=== PATIENT | female | born 1990 | race Caucasian/White ===

== ENCOUNTER 2018-08-13 17:56 | Emergency (ER) | END 2018-08-13 19:26 | disposition left against medical advice (07) ==

== ENCOUNTER 2018-10-23 08:45 | Inpatient (IN) | payer OTHER ==
[~2018-10-23] VITALS: Ht 172.7 cm; Wt 111.2 kg
[~2018-10-23 08:45] MED LIST: PREN-93 PO
--- NOTE | 2018-10-23 08:46 | NSTRPT ---
NST Information Datetime Report Generated by CPN: 10/23/2018 08:46 Datetime: 10/19/2018 10:30 NST Information EGA: 39.4 Test Number: 8 Time on Monitor: 10/19/2018 11:05 Time off Monitor: 10/19/2018 11:36 NST Duration (Min): 31 Reason for NST: Diabetes Mellitus; Other Reason for NST Other: A1DM Test and Monitor Explained: Monitor Explained; Test Explained; Verbalized Understanding Pulse: 96 Resp: 18 SBP: 111 DBP: 65 Test Evaluation NST Interventions: None Patient States Movement: Present Contraction Frequency: NONE FHR Baseline : 150 Variability: Moderate 6-25bpm Accelerations: 15X15 Decelerations: None FHR Category: Category I NST Results: Reactive Comments: PT TO U/S ROBIN 12.7 CM CEPHALIC Electronically Signed By E-Signature: with User ID: [id number] Datetime: 10/17/2018 10:44 NST Information EGA: 39.2 NST Duration (Min): 97 Datetime: 10/12/2018 09:26 NST Information EGA: 38.4 NST Duration (Min): 26 Datetime: 10/09/2018 14:14 NST Information EGA: 38.1 NST Duration (Min): 26 Datetime: 10/05/2018 14:13 NST Information EGA: 37.4 NST Duration (Min): 30 Datetime: 10/02/2018 10:22 NST Information EGA: 37.1 NST Duration (Min): 20 Datetime: 09/28/2018 13:10 NST Information EGA: 36.4 NST Duration (Min): 25 Datetime: 09/25/2018 13:19 NST Information EGA: 36.1 NST Duration (Min): 49
[2018-10-23 09:27] VITALS: BP 128/73; PULSE 83; RESP 17; Ht 172.7 cm; Wt 111.2 kg
[2018-10-23] MEDS ORDERED: OXYCODONE/ASPIRIN (4.88/325) TAB PO PRN (09:30)
[2018-10-23] MEDS ORDERED: BUTORPHANOL 2 MG INJ IV PRN (09:30)
[2018-10-23] MEDS ORDERED: OXYTOCIN 30 UNITS/LR 500 ML IV SCH ×2 (09:30)
[2018-10-23] MEDS ORDERED: CARBOPROST 250 MCG INJ IM PRN (09:30)
[2018-10-23] MEDS ORDERED: LIDOCAINE 1% (MPF) 30 ML INJ INJ PRN (09:30)
[2018-10-23] MEDS ORDERED: MISOPROSTOL 200 MCG TAB PR PRN (09:30)
[2018-10-23] MEDS ORDERED: IBUPROFEN 600 MG TAB PO PRN (09:30)
[2018-10-23] MEDS ORDERED: METHYLERGONOVINE 0.2 MG INJ IM PRN (09:30)
[2018-10-23] MEDS ORDERED: OXYTOCIN 30 UNITS/LR 500 ML IV PRN (09:30)
--- NOTE | 2018-10-23 10:19 | TRIAGE ---
OB Triage Datetime Report Generated by CPN: 10/23/2018 10:18 Datetime: 10/23/2018 10:10 Vaginal Exam Dilatation (cms): 0.0 Exam By: [facility]U Datetime: 10/23/2018 09:38 Labor Evaluation Frequency: 2-6 Monitor Mode: External Duration (sec)2399: 50-70 Quality: Mild Pattern: Normal: <= 5 Contractions in 10 Minutes Resting Tone Elsa: Relaxed Heart Rate FHR Baseline Rate: 135 Monitor Mode: External US Variability: Moderate 6-25 bpm Accelerations: 15X15 Decelerations: None Category: Category I Pain Presence: None/Denies Pain Type: N/A Datetime: 10/23/2018 09:25 Assessment Type: Triage Maternal Assessment Level of Consciousness: Fully Conscious DTR's/Clonus: DTRs 2+; No Clonus Headache: Denies Blurred Vision: No Respiratory Effort: Unlabored; Regular Rhythm; Equal Expansion Breath Sounds, Left: Clear and Equal Breath Sounds, Right: Clear and Equal Nausea/Vomiting: Denies RUQ Epigastric Pain: Denies Lower Extremities Edema: None Degree: None Upper Extremities Edema: None Facial Edema: None Fall Risk Assessment History of Falling: (0) No Secondary Diagnosis: (0) No Ambulatory Aid: (0) Bedrest/Nurse Assist IV Therapy: (0) No Gait: (0) Normal/Bedrest/Immobile Mental Status: (0) Oriented to Own Ability Fall Score: 0 Fall Risk Score Definition: No Risk: No action required Datetime: 10/23/2018 09:24 Time of Arrival: 10/23/2018 08:43 EGA: 40.1 Arrived By: Ambulatory Arrived From: Home Chief Complaint: pt came to ob triage with referral form for nst, bpp, efw Movement: Present Contractions: Irregular Rupture of Membranes: Denies Vaginal Bleeding: None Vaginal Discharge: Denies Recent Sexual Intercouse: Denies Abdominal Trauma: Not Applicable Patient Complaints: None Additional Patient Complaints: history of type II DM Time Provider Notified: 10/23/2018 10:01 Provider Notified: Datetime: 09/15/2018 23:56 Pain Assessment Pain Scale: 0 Pain Presence: None/Denies Pain Type: N/A Datetime: 09/15/2018 21:53 Stage of : OB Triage Datetime: 09/15/2018 21:06 EGA: 34.5 Datetime: 09/15/2018 20:52 Fall Score: 25 Fall Risk Score Definition: Low Risk: Please see standard fall prevention interventions Datetime: 08/13/2018 20:00 EGA: 30.0 Datetime: 08/13/2018 19:40 Fall Score: 0 Fall Risk Score Definition: No Risk: No action required
[2018-10-23] MEDS: LACTATED RINGER'S 1,000 ML IV SCH ×3 (11:06→23:27)
[2018-10-23] MEDS: MISOPROSTOL 50 MCG CAPSULE PO SCH ×3 (12:36→22:11)
--- NOTE | 2018-10-23 17:07 | HP ---
Date/Time of Note Date/Time of Note DATE: 10/23/18 TIME: 17:01 OB - History Hx of Present Free Text/Dictation 2 para 1 at 40+ weeks gestation admitted for induction of labor Last Menstrual Period: January 17, 2018 Estimated Due Date: Oct 22, 2018 : 2 Para: 1 Care: Good Care Ultrasounds: Normal mid trimester US Obstetrical Complications: None, Other (Bipolar affect disorder) Medical Complications: None Past Family/Social History * Past Medical, Surgical, Family and Obstetric Histories reviewed from chart. Blood Type: A+ Rubella: immune RPR/VDRL: Negative GBS Status: Negative HBsAG: Negative OB Admission Exam Vital Signs Vital Signs Vital Signs Date Temp Pulse Resp B/P (MAP) Pulse Ox O2 O2 Flow FiO2 Time Delivery Rate 10/23/18 98.1 83 17 128/73 09:27 (91) Physical Exam HEENT: WNL Heart: Rhythm Normal Lungs: Clear, Equal Abdomen: WNL Extremities: Normal Reflexes: Normal Cervical Dilatation: None Effacement: 0% Station: -3 Membranes: Intact Heart Rate: 140's Accelerations: Accelerations Present Decelerations: No Decelerations Varibility: Marked Contractions on Admission: None Last 72 hours Lab Results CBC & BMP 10/23/18 11:00 OB Assessment/Plan Other Assessment: Post term Other plan: Start induction using Cytotec NONI ANDREA MD Oct 23, 2018 17:07
[2018-10-23] MEDS ORDERED: LACTATED RINGER'S 1,000 ML IV PRN (22:13)
[2018-10-23] MEDS ORDERED: FENTAnyl 2MCG/ML-ROPIV 0.2% 100 ML ONE (23:41)
--- NOTE | 2018-10-23 23:50 | PREAC ---
Date/Time of Note Date/Time of Note DATE: 10/23/18 TIME: 23:49 Anesthesia Eval and Record Evaluation Time Pre-Procedure Interview DATE: 10/23/18 TIME: 23:49 Age 28 Sex female NPO: 8 hrs Preoperative diagnosis Labor Pain Planned procedure Labor Epidural Past Medical History Past Medical History: Includes Heme: Anemia : : (2), Para: (1), Gestational age: (40) Surgery & Anesthesia Issues No known issue Meds Anticoagulation: No Beta Doug within 24 hr: No Reason Beta Doug not given: Pt. not on B-Doug Reported Medications Vit No.124/Iron/FA ( Vitamin Tablet) 1 Each Tablet, 1 EACH PO, TAB 09/15/18 Current Medications Lactated Ringer's 1,000 ml @ 125 mls/hr Q8H IV Last administered on 10/23/18at 23:27; Admin Dose 125 MLS/HR; Start 10/23/18 at 09:29 Butorphanol Tartrate (Stadol) 2 mg Q2H PRN IV .PAIN; Start 10/23/18 at 09:30 Lidocaine (Xylocaine 1% (Mpf)) 30 ml ONCE PRN INJ .EPISIOTOMY; Start 10/23/18 at 09:30 Oxytocin/Lactated Ringer's 500 ml @ 500 mls/hr ONCE POST IV ; Start 10/23/18 at 09:30 Oxytocin/Lactated Ringer's 500 ml @ 125 mls/hr POST IV ; Start 10/23/18 at 09:30 Ibuprofen (Motrin) 600 mg ONCE PRN PO .PAIN 1-5; Start 10/23/18 at 09:30 Oxycodone/Aspirin (Percodan) 2 tab ONCE PRN PO .PAIN 6-10; Start 10/23/18 at 09:30 Oxytocin/Lactated Ringer's 500 ml @ 0 mls/hr ONCE PRN IV .VAGINAL BLEEDING; Start 10/23/18 at 09:30 Methylergonovine Maleate (Methergine) 0.2 mg ONCE PRN IM .VAGINAL BLEEDING; Start 10/23/18 at 09:30 Carboprost Tromethamine (Hemabate) 250 mcg ONCE PRN IM .VAGINAL BLEEDING; Start 10/23/18 at 09:30 Misoprostol (Cytotec) 1,000 mcg ONCE PRN SC .VAGINAL BLEEDING; Start 10/23/18 at 09:30 Lactated Ringer's 1,000 ml @ 2,000 mls/hr Q30M PRN IV .ANESTHESIA Last administered on 10/23/18at 22:34; Admin Dose 2,000 MLS/HR; Start 10/23/18 at 22:13 Meds reviewed: Yes Allergies Coded Allergies: No Known Allergy (Unverified , 10/23/18) Allergies Reviewed: Yes Labs/Studies Labs Reviewed: Reviewed by anesthesiologist Result Diagram: 10/23/18 1100 10/23/18 1100 Laboratory Tests 10/23/18 11:00 Blood Bank Test 10/23/18 11:00 Antibody Screen NEGATIVE Blood Type A POSITIVE Rh Immune Globulin Candidate NO test: Positive Studies: ECG (n/a), CXR (n/a) Pre-procedure Exam Last vitals Vital Signs Date Temp Pulse Resp B/P (MAP) Pulse Ox O2 O2 Flow FiO2 Time Delivery Rate 10/23/18 98.1 83 17 128/73 09:27 (91) Airway: Adequate mouth opening, Adequate thyromental dist Mallampati: Mallampati II Teeth: Normal Lung: Normal Heart: Normal ASA Physical Status ASA physical status: 2 Emergency: None Planned Anesthetic Neuraxial: Epidural Planned Pain Management Epidural Pre-operative Attestations Prior to commencing anesthesia and surgery, the patient was re-evaluated, there was verification of: *The patient's identity *The results of appropriate recent lab work and preoperative vital signs *The above evaluation not changing prior to induction *Anesthetic plan, risk benefits, alternative and complications discussed with patient/family; questions answered; patient/family understands, accepts and wishes to proceed. ANUM STEELE MD Oct 23, 2018 23:50
--- NOTE | 2018-10-23 23:52 | PAC ---
Date/Time of Note Date/Time of Note DATE: 10/23/18 TIME: 23:51 Post-Anesthesia Notes Post-Anesthesia Note Last documented vital signs Vital Signs Date Temp Pulse Resp B/P (MAP) Pulse Ox O2 O2 Flow FiO2 Time Delivery Rate 10/23/18 98.1 83 17 128/73 98 room air 23:50 (91) Activity: WNL Respiratory function: WNL Cardiovascular function: WNL Mental status: Baseline Pain reasonably controlled: Yes Hydration appropriate: Yes Nausea/Vomiting absent: Yes ANUM STEELE MD Oct 23, 2018 23:52
[2018-10-24] MEDS ORDERED: NALOXONE (0.4 MG/ML) INJ IV PRN
[2018-10-24] MEDS: FENTAnyl 2MCG/ML-ROPIV 0.2% 100 ML BAG EPI SCH ×3 (00:05→14:44)
[2018-10-24] MEDS: LACTATED RINGER'S 1,000 ML IV SCH ×2 (05:46→13:40)
[2018-10-24] MEDS ORDERED: OXYTOCIN 30 UNITS/LR 500 ML IV SCH (09:00)
[2018-10-24] MEDS ORDERED: TERBUTALINE 1 ML ONE (15:49)
[2018-10-24] MEDS ORDERED: TERBUTALINE 1 MG/ML INJ SC ONE (15:50)
[2018-10-24] MEDS ORDERED: KETOROLAC 30 MG INJ IV STA (17:57)
--- NOTE | 2018-10-24 18:04 | LDN ---
Date/Time of Note Date/Time of Note DATE: 10/24/18 TIME: 18:01 Delivery Summary Vacuum extraction of a viable infant over intact perineum Weeks of Gestation 40+ weeks Assisted Vaginal Delivery: Vacuum (Vacuum extraction was performed because of prolonged bradycardic episodes) Placenta Delivered: Spontaneously, Intact & Complete Meconium: none Episiotomy: No Perineal laceration: 0 Anesthesia type: Epidural Estimated blood loss: 300 Sponge & Needle done & correct: Yes All needle counts correct: Yes Any foreign bodies felt in the: No Delivery Information Sex Infant Sex: male Apgars 1 Minute: 5 5 Minute: 8 Suctioning Nose & mouth suctioned at ronaldo: Yes Delee suction performed: No Umbilical Cord Umbilical cord with: 3 Vessels Cord presentations: no nuchal cord Cord Blood was obtained: Yes (Cord pH was also sent) Mother & Baby Disposition Disposition Mom & Baby to Maternity; Good: Yes (Mother was recovered in good condition) Mom transferred to: Other (Maternity) Baby to NICU: Yes (Baby was transferred to NICU for observation) NONI ANDREA MD Oct 24, 2018 18:04
[2018-10-24] MEDS ORDERED: LACTATED RINGER'S 1,000 ML IV* SCH (21:40)
[2018-10-24 21:46] VITALS: BP 121/71; PULSE 87; RESP 18
[2018-10-24] MEDS ORDERED: HYDROCODONE/APAP (5/325) TAB PO PRN (22:00)
[2018-10-24] MEDS ORDERED: WITCH HAZEL/GLYCERIN PAD PR PRN (22:00)
[2018-10-24] MEDS ORDERED: OXYTOCIN 30 UNITS/LR 500 ML IV PRN (22:00)
[2018-10-24] MEDS ORDERED: MISOPROSTOL 200 MCG TAB PR PRN (22:00)
[2018-10-24] MEDS ORDERED: CARBOPROST 250 MCG INJ IM PRN (22:00)
[2018-10-24] MEDS ORDERED: METHYLERGONOVINE 0.2 MG INJ IM PRN (22:00)
[2018-10-24] MEDS ORDERED: LANOLIN HPA 1 PKT TOP PRN (22:00)
[2018-10-24] MEDS ORDERED: BENZOCAINE 20% 56 ML SPRAY TOP PRN (22:00)
[2018-10-24] MEDS ORDERED: DIBUCAINE 1% 30 GM OINT TOP PRN (22:00)
[2018-10-24] MEDS ORDERED: ZOLPIDEM 5 MG TAB PO PRN (22:00)
[2018-10-25] VITALS: BP 131/73; PULSE 81; RESP 18
[2018-10-25] MEDS: IBUPROFEN 600 MG TAB PO SCH ×5 (00:15→23:28)
[2018-10-25] MEDS: CEPHALEXIN 500 MG CAP PO SCH ×5 (00:15→23:28)
[2018-10-25 04:13] VITALS: BP 108/70; PULSE 81; RESP 18
[2018-10-25 08:40] VITALS: BP 97/59; PULSE 79; RESP 20
[2018-10-25] MEDS: SENNA/DOCUSATE NA (8.6MG/50MG) TAB PO SCH ×2 (08:40→21:50)
[2018-10-25] MEDS: MAGNESIUM HYDROXIDE 30ML CUP PO SCH ×2 (09:00→21:50)
[2018-10-25 12:00] VITALS: BP 110/62; PULSE 64; RESP 20
--- NOTE | 2018-10-25 14:50 | DS ---
Date/Time of Note Date/Time of Note Home today or next day DATE: 10/25/18 TIME: 14:49 Obstetrical Discharge Record Final Diagnosis Final Diagnosis: Term delivered Other Final Diagnosis Status post vaginal delivery Vaginal Delivery Obstetrical Delivery: Spontaneous Complications Induction: Yes Condition on Discharge Physical Assessment Last Vitals: See nurse's notes Voiding: Yes Bowel Movement: Yes Breast: Soft, non-tender, Filling Fundus: Firm Abdomen and Incision: Abdomen is soft with firm fundus Episiotomy: Perineum is clean Calf Tenderness: No Patient Condition: Good NONI ANDREA MD Oct 25, 2018 14:50
[2018-10-25] MEDS ORDERED: IBUP-1542 PO (14:51)
--- NOTE | 2018-10-25 14:51 | PD.PPDC ---
FARM ADVISER Discharge Instruction Provider Information Physician Information 28-year-old female had vaginal delivery Diagnosis [id number] Final Diagnosis: [id number] Status post vaginal delivery Condition [id number] Patient Condition: [id number] Good Diet [id number] Diet: [id number] Resume Regular Diet Activity/Restrictions [id number] Activity: [id number] Normal Activity May Shower [id number] Restrictions: [id number] Nothing in the Vagina [id number] Return to Work or School: [id number] Dec 11, 2018 Follow-up Follow-up with Physician: 2, 4, Week/Weeks (In clinic for follow-up) Return to clinic for [id number] OB Instructions: [id number] Breast Tenderness Depression Comment: Pelvic rest for 6 weeks NONI ANDREA MD Oct 25, 2018 14:51
[2018-10-25] MEDS: HYDROCODONE/APAP (5/325) TAB PO PRN (16:53)
[2018-10-25 17:04] VITALS: BP 116/72; PULSE 84; RESP 20
[2018-10-25 21:50] VITALS: BP 120/71; PULSE 70; RESP 18
[2018-10-26 04:30] VITALS: BP 108/65; PULSE 79; RESP 18
[2018-10-26] MEDS: CEPHALEXIN 500 MG CAP PO SCH ×2 (05:24→13:02)
[2018-10-26] MEDS: IBUPROFEN 600 MG TAB PO SCH ×2 (05:25→13:01)
[2018-10-26 08:00] VITALS: BP 118/55; PULSE 85; RESP 18
[2018-10-26] MEDS ORDERED: DIPHTH/TET/ACEL PERTUSS (ADULT) 0.5 ML VIAL IM* ONE (09:00)
[2018-10-26] MEDS ORDERED: VARICELLA VACCINE LIVE/PF 1,350 UNIT/0.5 ML ML SC* ONE (09:00)
[2018-10-26] MEDS ORDERED: MEASLES,MUMPS,RUBELLA VACCINE INJ SC* ONE (09:00)
[2018-10-26] MEDS: SENNA/DOCUSATE NA (8.6MG/50MG) TAB PO SCH (09:00)
[2018-10-26] MEDS: MAGNESIUM HYDROXIDE 30ML CUP PO SCH (09:00)
[2018-10-26] MEDS: HYDROCODONE/APAP (5/325) TAB PO PRN (09:23)
== END 2018-10-26 13:45 | disposition home or self-care (01) | DRG 807 ==
LOC: OBT 08:45 → L-D 08:45 → OBT 10:15 → PP1 10-24 21:10 → MS1 10-25 22:36
PROVIDERS: ADMIT Obstetrics & Gynecology; ATTEND Obstetrics & Gynecology
PROC: 3E0P7GC Introduction of Other Therapeutic Substance into Female Reproductive, Via Natural or Artificial Opening (ICD-10-PCS; 2018-10-23)
PROC: 4A1HXCZ Monitoring of Products of Conception, Cardiac Rate, External Approach (ICD-10-PCS; 2018-10-23)
PROC: 10D07Z6 Extraction of Products of Conception, Vacuum, Via Natural or Artificial Opening (ICD-10-PCS; principal; 2018-10-24)
DX: O48.0 Post-term pregnancy (principal); Z37.0 Single live birth; O76 Abnormality in fetal heart rate and rhythm complicating labor and delivery; Z3A.40 40 weeks gestation of pregnancy
CPT/HCPCS: 62319; 76815; 76818; 80307; 82947; 82962; 85025; 85610; 85730; 86592; 86850; 86900; 86901; 87340; 90715; 90716; 99464; G0463; J1885; J2590; J3010; J3105; J7120